=== PATIENT | male | born 1935 | race Caucasian/White ===

== ENCOUNTER 2016-07-23 09:49 | Inpatient (IN) | payer MEDICARE ==
[2016-07-23] MEDS ORDERED: NS 500 ML IV ONE (09:52)
--- NOTE | 2016-07-23 09:55 | EDPRACDOC ---
- General Information Chief Complaint: Altered Mental Status Stated Complaint: SYNCOPE Time Seen by Provider: 07/23/16 09:51 Home Medications: Home Medications Aspirin (Enteric Coated) [Ecotrin] 81 mg PO DAILY 07/23/16 Enalapril Maleate 20 mg PO BID 07/23/16 Fenofibrate,Micronized [Fenofibrate] 200 mg PO DAILY 07/23/16 Furosemide [Lasix] 40 - 80 mg PO DAILY 07/23/16 Levothyroxine [Synthroid, Levoxyl] 37.5 mcg PO DAILY 07/23/16 Metoprolol Tartrate 25 mg PO BID 07/23/16 Pravastatin [Pravachol] 80 mg PO DAILY 07/23/16 Tamsulosin HCl [Flomax] 0.4 mg PO DAILY 07/23/16 Warfarin Sodium [Coumadin] 0.5 mg PO WE 07/23/16 Warfarin Sodium [Coumadin] 1 mg PO SUMOTUTHFRSA 07/23/16 Allergies/Adverse Reactions: Allergies Allergy/AdvReac Type Severity Reaction Status Date / Time No Known Allergies Allergy Verified 07/23/16 10:03 - History of Present Illness Onset: TODAY Exact Onset of Symptoms: Unknown Date Symptoms Started: 07/23/16 HPI: PATIENT HAS A HX OF AFIB. FEELING WEAK AND DIZZY TODAY. STANDING AT THE STOVE HAD A SYNCOPAL EPISODE AND FELL BACKWARD. UNKNOWN LOC TIME. NO FEVER. NO CHEST PAIN. MILD HEADACHE AFTER FALL. ABRASIONS TO BOTH ELBOWS. CURRENTLY ON BLOOD THINNER. FAMILY STATES PATIENT HAS HAD DIZZINESS INTERMITTENTLY FOR DAYS. NOT WALKING WELL Symptoms began: Suddenly Duration: Unknown Symptoms Currently: Reports: Resolved Altered Quality: Reports: Decreased Alertness Altered Severity: Reports: Unresponsive Prehospital: Reports: Analysis Lead Associated signs and symptoms: Reports: Headache ED Past Medical History - History Reviewed Yes Nurses notes reviewed and agree except as marked Travel Outside of [place] in the Last 3 Months?: No - Social Medical History ETOH: None Substance Abuse: None Lives With: Family Lives In: Home EDM Review of Systems - Review of Systems ROS Negative Except as Marked: Yes All systems reviewed and were negative except as marked Constitutional: No Symptoms Reported. negative: Fever, Chills, Weakness, Fatigue, Loss of Appetite Eyes: No Symptoms Reported. negative: Redness, Blurred Vision, Double Vision, Discharge, Pain, Light Sensitive, Photophobia Ears: No Symptoms Reported. negative: Pain, Hearing Loss, Drainage, Ear Pulling Throat: No Symptoms Reported. negative: Pain, Swelling Nose: No Symptoms Reported. negative: Congestion, Bleeding, Discharge, Injection, Swelling, Deformity, Ecchymosis, Tender, Abrasion, Laceration Mouth: No Symptoms Reported. negative: Pain, Drooling Respiratory: No Symptoms Reported. negative: Cough, Brassy Cough, Barky Cough, Shortness of Breath, Wheezing, Hemoptysis Cardiovascular: Syncope. negative: Chest Pain, Cyanosis, Edema, Orthopnea, Palpitations, PND, Skin Mottling Gastrointestinal: No Symptoms Reported. negative: Pain, Constipation, Nausea, Vomiting, Diarrhea, Melena, Formula Intolerance Genitourinary: No Symptoms Reported. negative: Dysuria, Hematuria, Frequency, Discharge, Bleeding, Testicular Pain, Neurological: Dizziness. negative: Gait Difficulty, Headache, Numbness, Seizure , Speech Difficulty, Weakness Musculoskeletal: No Symptoms Reported. negative: Neck, Chestwall, Ribs, Back, Shoulder, Arm, Elbow, Forearm, Wrist, Hand, Pelvis, Hip, Femur, Knee, Leg, Ankle , Foot Integumentary: No Symptoms Reported. negative: Itching, Rash, Bruising, Wound Allergic/Immunologic: No Symptoms Reported. negative: Hives, Itching Hematologic: No Symptoms Reported. negative: Lymphadenopathy, Easy Bruising, Easy Bleeding Endocrine: No Symptoms Reported. negative: Weight Gain, Weight Loss Psychiatric: No Symptoms Reported. negative: Anxiety, Depression, Hallucinations, Insomnia, Suicidal - Physical Exam Constitutional: Alert (Awake), Distress (MILD) Oriented to: Time, Person, Place Last recorded Vital Signs: Oxygen Pulse Oxygen Saturation O2 Device Oxygen Flow Rate Fraction of Inspired Oxygen ( FIO2) - HEENT Head: Normal ( normocephalic) Eye Exam: Normal (PERRL, EOMI, Sclera white) Oropharynx: Normal (Pharynx:Moist without exudate,Gums-no swelling) Tympanic Membrane: Normal ENT EAC: Normal TMJ: Normal Nose: No Symptoms Reported (septum midline) Neck: Normal (FROM, trachea at midline) - Respiratory/Cardiovascular Respiratory: Normal - CTA (BBS clear to auscultation without adventitious sounds ) Cardiovascular: Normal (RRR without murmur, gallop or rub) - GI Auscultation: Normal (NABS) Palpation: Normal (Soft,No rebound or guarding, non distended) Tenderness: Non tender Sykes's Sign: Negative - Bladder: Normal - Musculoskeletal Back: Normal (Non-Tender) Extremities: Other (SKIN TEAR TO BOTH ELBOWS. FULL ROM GOOD DISTAL SENSATION AND PULSES) - Integumentary Skin: Warm, Dry Lymphatics: Normal (no adenopathy) - Neurologic Memory Impaired: Normal Motor Function: Normal (Normal tone, Pulses 2+ No cyanosis or edema, FROM) Cranial Nerve: Normal (CN II-X11 intact sensation, strength 5/5) Cerebellar: Normal Mood Description: Normal Thought: Coherent Perception: Normal - Results 07/23/16 10:26 07/23/16 10:26 - EKG EKG #1 EKG Time: 10:21 -: Yes EKG interpreted by me Rate: bpm: 90 [place]: Normal Rhythm: Afib Block: None Hypertrophy: None ST: Lat, Nonsp Comments: V4-V6 INVERTED TWAVES, LEAD 1 INVERTED T WAVES EKG #2 EKG Time: 10:26 -: Yes EKG interpreted by me Rate: bpm: 86 [place]: Normal Rhythm: ST Block: None Hypertrophy: None ST: Lat, Nonsp (FLIPPED T- WAVES LEAD V4-V6, LEAD 1) Decision Time to Discharge: 15:20 - Departure Yes I personally saw and evaluated the patient. Disposition: Admit IP To This Hospital Condition: Good Final Diagnosis: Lung nodule, multiple Syncope Qualifiers: Syncope type: unspecified Qualified Code(s): R55 - Syncope and collapse COPD (chronic obstructive pulmonary disease) Qualifiers: COPD type: emphysema Emphysema type: unspecified Qualified Code(s): J43.9 - Emphysema, unspecified Elbow contusion Qualifiers: Encounter type: initial encounter Laterality: unspecified laterality Qualified Code(s): S50.00XA - Contusion of unspecified elbow, initial encounter Instructions: Syncope (ED) Education/Counseling Given To: Patient Education/Counseling Given Regarding: Diagnosis, Treatment, Prognosis, Follow Up Referrals: Zeeshan Claros MD [Primary Care Provider] - One Week Ricky Ellington MD [Staff Physician] - One Week Decision to Admit Time: 15:27 Decision to admit date: 07/23/16 Decision to admit: from ED - Physician Consulted Hospitalist Time Called: 15:28 Provider Called: Berto Farah Time [employer] Returned Call: 15:28
[2016-07-23 10:36] LABS: AUTOMATED BASOPHIL 0.7 % (0-2); AUTOMATED EOSINOPHIL 0.3 % (0-5); AUTOMATED LYMPH 9.6 % (17-44); AUTOMATED MONOCYTE 8.7 % (3-10); AUTOMATED NEUTROPHIL 80.7 % (45-76); MPV 9.6 fL (7.4-10.4)
[2016-07-23 10:46] LABS: PT-INR 2.6
[2016-07-23 10:48] LABS: BLOOD UREA NITROGEN 41 MG/DL (9-20); CALCIUM 9.1 MG/DL (8.4-10.2); CALCULATED OSMOLALITY 281 MOs/Kg (270-290); CHLORIDE 101 mEq/L (98-107); GLUCOSE 106 MG/DL (70-99); SODIUM LEVEL 141 mEq/L (137-146); TOTAL PROTEIN 7.6 G/DL (6.3-8.2)
--- NOTE | 2016-07-23 11:19 | DIRPT ---
CLINICAL DATA: Patient status post fall. Patient hit the back of his head. No reported loss of consciousness. EXAM: CT HEAD WITHOUT CONTRAST CT CERVICAL SPINE WITHOUT CONTRAST TECHNIQUE: Multidetector CT imaging of the head and cervical spine was performed following the standard protocol without intravenous contrast. Multiplanar CT image reconstructions of the cervical spine were also generated. COMPARISON: Brain CT 12/05/2015. FINDINGS: CT HEAD FINDINGS Ventricles and sulci are appropriate for patient's age. No evidence for acute cortically based infarct, intracranial hemorrhage, mass lesion or mass-effect. Periventricular and subcortical white matter hypodensity compatible with chronic small vessel ischemic changes. Orbits are unremarkable. Paranasal sinuses are unremarkable. Mastoid air cells are well aerated. Calvarium is intact. CT CERVICAL SPINE FINDINGS Normal anatomic alignment. No evidence for acute fracture or dislocation. Preservation of the vertebral body and intervertebral disc space heights. Craniocervical junction is intact. Prevertebral soft tissues are unremarkable. Atherosclerotic calcification at the carotid bifurcations bilaterally. Extensive apical emphysematous change. 7 mm nodule within the right upper lobe (image 83; series 6). IMPRESSION: No acute intracranial process. No acute cervical spine fracture. 7 mm nodule right upper lobe. Given the patient's high-risk status, follow-up chest CT in 3 months is recommended. This recommendation follows the consensus statement: Guidelines for Management of Small Pulmonary Nodules Detected on CT Scans: A Statement from the Fleischner Society as published in Radiology 2005; 237:395-400. Electronically Signed By: Jim Mcgee M.D. On: 07/23/2016 11:16
--- NOTE | 2016-07-23 11:35 | DIRPT ---
CLINICAL DATA: 81-year-old male with with he history of atrial fibrillation. Weakness. Syncopal episode falling backward with injury to the left elbow. EXAM: LEFT ELBOW - COMPLETE 3+ VIEW COMPARISON: No priors. FINDINGS: Multiple views of the left elbow demonstrate no acute displaced fracture, subluxation, dislocation, or soft tissue abnormality. IMPRESSION: 1. No acute radiographic abnormality of the left elbow. Electronically Signed By: Harlan Bruno M.D. On: 07/23/2016 11:32
--- NOTE | 2016-07-23 11:36 | DIRPT ---
CLINICAL DATA: Fall EXAM: CHEST 1 VIEW COMPARISON: 08/19/2012 FINDINGS: Mild cardiomegaly. Bibasilar heterogeneous opacities have developed. No pneumothorax. No pleural effusion. Mild vascular congestion. IMPRESSION: Bibasilar heterogeneous opacities are worrisome for bronchopneumonia or edema. Followup PA and lateral chest X-ray is recommended in 3-4 weeks following trial of antibiotic therapy to ensure resolution and exclude underlying malignancy. Electronically Signed By: Trent Martinez M.D. On: 07/23/2016 11:33
--- NOTE | 2016-07-23 11:38 | DIRPT ---
CLINICAL DATA: 81-year-old male with acute right elbow pain following fall. Initial encounter. EXAM: RIGHT ELBOW - COMPLETE 3+ VIEW COMPARISON: None. FINDINGS: There is no evidence of fracture, dislocation, or joint effusion. There is no evidence of arthropathy or other focal bone abnormality. Soft tissues are unremarkable. IMPRESSION: Negative. Electronically Signed By: Santo Cantrell M.D. On: 07/23/2016 11:35
[2016-07-23] MEDS ORDERED: Pharmacy Review for Metformin - IV Contrast Given SCH (13:00)
--- NOTE | 2016-07-23 15:26 | DIRPT ---
CLINICAL DATA: Patient status post fall. Syncope. EXAM: CT ANGIOGRAPHY CHEST WITH CONTRAST TECHNIQUE: Multidetector CT imaging of the chest was performed using the standard protocol during bolus administration of intravenous contrast. Multiplanar CT image reconstructions and MIPs were obtained to evaluate the vascular anatomy. CONTRAST: 80 cc Isovue 370 COMPARISON: Chest radiograph earlier same day ; chest radiograph 08/19/2012. FINDINGS: Mediastinum/Nodes: Visualized thyroid is unremarkable. Normal heart size. No pericardial effusion. Aorta and main pulmonary artery normal in caliber. There is a 1.4 cm right hilar lymph node (image 51; series 3) and a 1.0 cm right paraesophageal lymph node (image 63; series 3). Adequate opacification of the main pulmonary artery. No evidence for pulmonary embolism. Lungs/Pleura: Central airways are patent. Centrilobular and paraseptal emphysematous change. There is a 5 mm left lower lobe pulmonary nodule (image 72; series 4). Additionally there is a 13 mm right middle lobe nodule (image 143; series 2). There is a 14 mm tubular density within the right upper lobe (image 54; series 602). Probable scarring within the left lung apex. No pleural effusion or pneumothorax. Upper abdomen: Incompletely visualized 2 cm cyst within the right hepatic lobe. Gallbladder unremarkable. Adrenal glands are normal. 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 Musculoskeletal: Thoracic spine degenerative changes. Aggressive or acute appearing osseous lesions. Review of the MIP images confirms the above findings. IMPRESSION: No evidence for pulmonary embolism. Bilateral pulmonary nodules, largest of which measures 13 mm within the right middle lobe. Right middle lobe nodule is nonspecific and may be secondary to an infectious or inflammatory process. Pulmonary malignancy is not excluded given the appearance. Given the patient's high risk status, recommend further evaluation with either repeat chest CT in 3 months or PET-CT for further evaluation. Tubular density within the right upper lobe is nonspecific and may be secondary to an infectious or inflammatory process. Recommend attention on above discussed follow-up imaging. Enlarged mediastinal and hilar lymph nodes as above. These are nonspecific and may be reactive in etiology. Malignancy not excluded. Recommend attention on above discussed follow-up imaging. 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 Recommend vascular surgery consultation. These results were called by telephone at the time of interpretation on 07/23/2016 at 3:[address] OZ COHEN DO, who verbally acknowledged these results. Electronically Signed By: Jim Mcgee M.D. On: 07/23/2016 15:23
[2016-07-23] MEDS ORDERED: METOCLOPRAMIDE 10 MG/2 ML VIAL IV PRN (15:44)
[2016-07-23] MEDS ORDERED: ONDANSETRON HCL 4 MG/2 ML VIAL IV PRN (15:44)
[2016-07-23] MEDS ORDERED: DEXTROSE 25 GM/50 ML PFS IV PRN (15:44)
[2016-07-23] MEDS ORDERED: GLUCOSE (ORAL GEL) 15 GM TUBE PO PRN (15:44)
[2016-07-23] MEDS ORDERED: GLUCAGON 1 MG VIAL SQ PRN (15:44)
[2016-07-23] MEDS ORDERED: SIMETHICONE 80 MG TAB PO PRN (15:44)
[2016-07-23] MEDS ORDERED: BENZONATATE 100 MG PERLES PO PRN (15:44)
[2016-07-23] MEDS ORDERED: NS 1,000 ML IV ONE (15:44)
[2016-07-23] MEDS ORDERED: ACETAMINOPHEN 650 MG SUPP PR PRN (15:44)
[2016-07-23] MEDS ORDERED: TEMAZEPAM 15 MG CAP PO PRN (15:44)
[2016-07-23] MEDS ORDERED: DOCUSATE-SENNA CONCENTRATE TAB PO PRN (15:44)
[2016-07-23] MEDS ORDERED: ACETAMINOPHEN 325 MG/TAB TABLET PO PRN (15:44)
[2016-07-23] MEDS ORDERED: IBUPROFEN 400 MG TAB PO PRN (15:44)
[2016-07-23] MEDS ORDERED: SODIUM CHLORIDE 0.9% 3 ML FLUSH FLUSH PRN (15:44)
--- NOTE | 2016-07-23 15:51 | HISTPHYS ---
- Chief Complaint syncope - History of Present Illness Mr. Taran Palacios is an 81 year old gentleman who lives at home with his . She is the main historian, he seems to not quite recall everything that happened. She states that he awakened through out the night numerous times, having to urinate, and complained of feeling dizzy. He also reported a tight feeling like a band across his forehead. She states he was up and down all night long urinating. Usually he only has to get up once or twice at night to use the bathroom. Then early this morning, he was standing in the kitchen near the stove and he fell backwards, striking his elbows and the back of his head. She couldn't get him up, but called her son. The son came over and then they called EMS to bring him to the ED for further evaluation. He did not have any fractures and the CT of his head was normal. But the patient, although alert and able to follow all commands, still seems not quite aware of everything that is going on. He was unable to give his own history, other than to say that he fell down. He seems mildly confused. His was able to tell me that he had a similar episode in November of 2015, and had a Carotid Doppler and CT of his head done then. But the patient did not recall it. His neurochecks are normal, but he may have had a minor concussion. He was mildly orthostatic also when checked by the nurse: his pulse went from 86 supine to 125 standing, although his blood pressure remained almost the same: 163/77 supine and 158/72 standing. We will admit him for further evaluation and management. - Medical History Cardiac History: Reports: Atrial Fibrillation, Hypertension, Congestive Heart Failure, Hypercholesterolemia Respiratory History: Reports: No Significant History GI/ History: Reports: No Significant History, BPH Musculoskeletal History: Reports: Osteoarthritis Systemic History: Reports: No Significant History, Hypothyroidism. Denies: Diabetes Neurological History: Reports: No Significant History Psychological History: Denies: Depression - Surgical History Reports: No Significant History - Medictions/Allergies Allergies No Known Allergies Allergy (Verified 07/23/16 10:03) Current Medication List: Reviewed Home Medications Aspirin (Enteric Coated) [Ecotrin] 81 mg PO DAILY 07/23/16 Enalapril Maleate 20 mg PO BID 07/23/16 Fenofibrate,Micronized [Fenofibrate] 200 mg PO DAILY 07/23/16 Furosemide [Lasix] 40 - 80 mg PO DAILY 07/23/16 Levothyroxine [Synthroid, Levoxyl] 37.5 mcg PO DAILY 07/23/16 Metoprolol Tartrate 25 mg PO BID 07/23/16 Pravastatin [Pravachol] 80 mg PO DAILY 07/23/16 Tamsulosin HCl [Flomax] 0.4 mg PO DAILY 07/23/16 Warfarin Sodium [Coumadin] 0.5 mg PO WE 07/23/16 Warfarin Sodium [Coumadin] 1 mg PO SUMOTUTHFRSA 07/23/16 - Family History Reports: Hypertension, Diabetes (brother), Cardiac Disorders - Social History Travel Outside of [place] in the Last 3 Months?: No Lives: with Spouse Smoking Status: Never smoker Social History: Denies: Alcohol Use - Review of Systems Yes Review of systems cannot be obtained due to the patient's medical condition (confusion/forgetfulness) - Physical Exam Vital Signs: Initial Vitals Temperature 98.6 F 07/23/16 10:00 Pulse Rate 102 07/23/16 10:00 Respiratory Rate 18 07/23/16 10:00 Blood Pressure 164/82 07/23/16 10:00 Pulse Oxygen Saturation 97 07/23/16 10:00 Constitutional: Confused, Distress Oriented to: Person, Place - HEENT Head: Abrasion (occipital scalp), Other (large nevus of left religious) Eye: Normal (PERRL: EOMI) Oropharynx: Normal, Membranes Dry. negative: Drooling, Exudate, Red Tympanic Membrane: Dull ENT EAC: Cerumen Nose: No Symptoms Reported. negative: Bleeding, Congestion, Discharge, Deformity Respiratory: Normal - CTA, Diminished Cardiovascular: Irregular (irregularly irregular rhythm and rate, no murmur) - GI Auscultation: Normal Palpation: Normal (soft, nontender, obese, no mass or fluid wave). negative: Enlarged liver, Enlarged spleen Tenderness: Non tender Rectal Exam: Deferred - Exam Deferred: Yes - Musculoskeletal Back: Normal, No Palpable Step-off. negative: CVA Tenderness Extremities: Normal, Pedal Pulse (normal), Radial Pulse (normal), Other (skin tears to both elbows). negative: Clubbing, Cyanosis, Edema Spine: non-tender, full range of motion, normal alignment, normal inspection - Integumentary Skin: Warm, Dry, Other (abrasions to B elbows, occipital scalp with small contusion) Lymphatics: Normal - Neurologic Memory Impaired: Short-term Motor Function: Normal Cranial Nerve: Normal Cerebellar: Normal Mood Description: Flat Thought: Coherent Perception: Normal - Focused CV Perfusion Exam Vital Signs: Last Vital Signs Temp 98.2 F 07/23/16 15:35 Pulse 79 07/23/16 15:35 Resp 20 07/23/16 15:35 BP 165/77 07/23/16 15:35 Pulse Ox 96 07/23/16 15:35 - Lab Results Laboratory Tests 07/23/16 07/23/16 07/23/16 10:26 10:26 10:26 WBC 5.5 Hgb 15.1 Hct 45.5 Plt Count 195 Neut % (Auto) 80.7 H Lymph % (Auto) 9.6 L [place] % (Auto) 8.7 PT 26.6 H INR 2.6 APTT 31.0 Sodium 141 Potassium 4.1 Chloride 101 Carbon Dioxide 28 Anion Gap 16 BUN 41 H Creatinine 1.40 H Estimated GFR (MDRD) 48 L Glucose 106 H POC Capillary Glucose Calculated Osmolality 281 Calcium 9.1 Total Bilirubin 0.7 AST 27 ALT 27 Alkaline Phosphatase 66 Troponin I < 0.01 Clr-G-Vunhhccjasa Pept 1190 Total Protein 7.6 Albumin 4.5 TSH 07/23/16 07/23/16 07/23/16 13:00 16:20 16:35 WBC Hgb Hct Plt Count Neut % (Auto) Lymph % (Auto) [place] % (Auto) PT INR APTT Sodium Potassium Chloride Carbon Dioxide Anion Gap BUN Creatinine Estimated GFR (MDRD) Glucose POC Capillary Glucose Calculated Osmolality Calcium Total Bilirubin AST ALT Alkaline Phosphatase Troponin I < 0.01 0.01 Vvp-S-Exrsyywranl Pept Total Protein Albumin TSH 3.00 07/23/16 17:16 WBC Hgb Hct Plt Count Neut % (Auto) Lymph % (Auto) [place] % (Auto) PT INR APTT Sodium Potassium Chloride Carbon Dioxide Anion Gap BUN Creatinine Estimated GFR (MDRD) Glucose POC Capillary Glucose 93 Calculated Osmolality Calcium Total Bilirubin AST ALT Alkaline Phosphatase Troponin I [id number] Pept Total Protein Albumin TSH - Diagnostic Findings EKG: atrial fib, 90 bpm, nonspec ST-changes in lateral leads (V4-6 flipped T- waves) CXR:IMPRESSION: Bibasilar heterogeneous opacities are worrisome for bronchopneumonia or edema. Followup PA and lateral chest X-ray is recommended in 3-4 weeks following trial of antibiotic therapy to ensure resolution and exclude underlying malignancy. Electronically Signed By: Trent Martinez M.D. On: 07/23/2016 11:33 CT Head/ C-spine: IMPRESSION: No acute intracranial process. No acute cervical spine fracture. 7 mm nodule right upper lobe. Given the patient's high-risk status, follow-up chest CT in 3 months is recommended. This recommendation follows the consensus statement: Guidelines for Management of Small Pulmonary Nodules Detected on CT Scans: A Statement from the Fleischner Society as published in Radiology 2005; 237:395-400. Electronically Signed By: Jim Mcgee M.D. On: 07/23/2016 11:16 CTA chest:IMPRESSION: No evidence for pulmonary embolism. Bilateral pulmonary nodules, largest of which measures 13 mm within the right middle lobe. Right middle lobe nodule is nonspecific and may be secondary to an infectious or inflammatory process. Pulmonary malignancy is not excluded given the appearance. Given the patient's high risk status, recommend further evaluation with either repeat chest CT in 3 months or PET-CT for further evaluation. Tubular density within the right upper lobe is nonspecific and may be secondary to an infectious or inflammatory process. Recommend attention on above discussed follow-up imaging. Enlarged mediastinal and hilar lymph nodes as above. These are nonspecific and may be reactive in etiology. Malignancy not excluded. Recommend attention on above discussed follow-up imaging. 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 Recommend vascular surgery consultation. These results were called by telephone at the time of interpretation on 07/23/2016 at 3:[address] OZ COHEN DO, who verbally acknowledged these results. Electronically Signed By: Jim Mcgee M.D. On: 07/23/2016 15:23 R. Elbow x-ray:IMPRESSION: Negative. Electronically Signed By: Santo Cantrell M.D. On: 07/23/2016 11:35 L Elbow X-ray: FINDINGS: Multiple views of the left elbow demonstrate no acute displaced fracture, subluxation, dislocation, or soft tissue abnormality. IMPRESSION: 1. No acute radiographic abnormality of the left elbow. Electronically Signed By: Harlan Bruno M.D. On: 07/23/2016 11:32 - Assessment (1) Syncope R55 - SYNCOPE AND COLLAPSE Acute Present on Admission: Yes Qualifiers: Syncope type: vasovagal syncope Qualified Code(s): R55 - Syncope and collapse Etiology uncertain but it may be dehydration due to his nocturnal diuresis. Not clear what caused this, but he may be responding to mild CHF. Will check echocardiogram. Also do MRI of head for better definition of intracranial lesion; rule out stroke/ small bleed. Patient has slightly altered mental status. (2) Acute bronchopneumonia J18.0 - BRONCHOPNEUMONIA, UNSPECIFIED ORGANISM Acute Present on Admission: Yes Obtain blood cultures and begin IV antibiotics. (3) COPD (chronic obstructive pulmonary disease) J44.9 - CHRONIC OBSTRUCTIVE PULMONARY DISEASE, UNSPECIFIED Acute Present on Admission: Yes Qualifiers: COPD type: emphysema Emphysema type: unspecified Qualified Code(s): J43.9 - Emphysema, unspecified No wheezing at present, but multiple pulmonary nodules on CXR and CTA. Evidence of pulmonary disease that may need further evaluation with bronchoscopy. Will treat for infection first, refer to Dr. Ellington for follow- up and outpatient bronchoscopy. (4) Nocturnal polyuria R35.1 - NOCTURIA Acute Present on Admission: Yes Etiology not clear, patient has no history of diabetes, glucose not elevated, no abnormalities of serum osmolality. Possibly due to CHF and diastolic response to infection with increased pulmonary pressures. (5) Lung nodule, multiple R91.8 - OTHER NONSPECIFIC ABNORMAL FINDING OF LUNG FIELD Acute Present on Admission: Yes Will need follow up as outlined by radiology and probable bronchoscopy. Refer to Dr. Ellington. (6) Elbow contusion S50.00XA - CONTUSION OF UNSPECIFIED ELBOW, INITIAL ENCOUNTER Acute Present on Admission: Yes Qualifiers: Encounter type: initial encounter Laterality: unspecified laterality Qualified Code(s): S50.00XA - Contusion of unspecified elbow, initial encounter Treat symptomatically with antibiotic ointment and topical dressing to wounds. Case Care Discussed with: Patient, Family, Nursing Staff Total Time: 65 min Critical Care: No Couseling Time (>50% in counseling/coordination): Yes Code: [id number]
[2016-07-23] MEDS ORDERED: ENOXAPARIN 40 MG/0.4 ML PFS SQ SCH (16:00)
[2016-07-23] MEDS ORDERED: Vaccine Screening Complete SCH (17:00)
[2016-07-23] MEDS: SODIUM CHLORIDE 0.9% 3 ML FLUSH FLUSH SCH (17:12)
[2016-07-23] MEDS: REGULAR INSULIN 100 UNITS/ML - 3 ML VIAL SQ SCH (19:25)
[2016-07-23] MEDS: NS 1,000 ML IV SCH ×2 (19:26→20:43)
[2016-07-23] MEDS: AZITHROMYCIN 500 MG in D5W 250 ML IV SCH (20:45)
[2016-07-23] MEDS: CEFTRIAXONE 1 GM in D5W 100 ML IV SCH (22:26)
[2016-07-24] MEDS: SODIUM CHLORIDE 0.9% 3 ML FLUSH FLUSH SCH ×2 (02:43→17:12)
[2016-07-24 05:45] LABS: BLOOD UREA NITROGEN 26 MG/DL (9-20); CALCIUM 8.9 MG/DL (8.4-10.2); CALCULATED OSMOLALITY 274 MOs/Kg (270-290); CHLORIDE 102 mEq/L (98-107); GLUCOSE 91 MG/DL (70-99); SODIUM LEVEL 140 mEq/L (137-146)
[2016-07-24] MEDS: REGULAR INSULIN 100 UNITS/ML - 3 ML VIAL SQ SCH ×2 (05:49→17:12)
[2016-07-24] MEDS: NS 1,000 ML IV SCH ×3 (08:19→20:28)
--- NOTE | 2016-07-24 09:51 | DIRPT ---
CLINICAL DATA: Persistent dizziness. Unsteady gait for 1 year. Polyuria. EXAM: MRI HEAD WITHOUT CONTRAST TECHNIQUE: Multiplanar, multiecho pulse sequences of the brain and surrounding structures were obtained without intravenous contrast. COMPARISON: Head CT from yesterday FINDINGS: Motion degraded study but overall diagnostic. Calvarium and upper cervical spine: No focal marrow signal abnormality. Orbits: Bilateral cataract resection. No pathologic finding. Sinuses and Mastoids: Clear. Brain: No acute infarct, hemorrhage, hydrocephalus, or mass lesion. No evidence of large vessel occlusion. No mass or signal abnormality at the sella, suprasellar cistern, or hypothalamus to explain the polyuria history. Generalized cerebral volume loss, age congruent. There is expected, mild small vessel ischemic change in the bilateral cerebral white matter. IMPRESSION: Unremarkable brain MRI for age. Electronically Signed By: Lane Thompson M.D. On: 07/24/2016 09:49
[2016-07-24] MEDS ORDERED: WARFARIN EDUCATION DOCUMENTATION ONE (10:00)
[2016-07-24] MEDS: PRAVASTATIN 80 MG TABLET PO SCH (10:28)
[2016-07-24] MEDS: TAMSULOSIN HCL 0.4 MG CAP PO SCH (10:28)
[2016-07-24] MEDS: METOPROLOL TARTRATE 25 MG TAB PO SCH ×2 (10:28→20:22)
[2016-07-24] MEDS: LEVOTHYROXINE 25 MCG (0.025 MG) TAB PO SCH (10:29)
--- NOTE | 2016-07-24 11:28 | CAPUECHO ---
INDICATION: SYNCOPE HEIGHT: 182.9 cm (6 ft 0.0 in) WEIGHT: 99.8 kg (220.0 lbs) BP: 134/74 BSA: 2.196849 m MEASUREMENTS 2D RVIDd: 3.3 cm IVSd: 1.1 cm LVIDd: 4.6 cm LVPWd: 1.1 cm LVIDs: 3.0 cm EF(Teich): 63.42 % LA Diam: 5.6 cm EF Biplane: 61.63 % LAESV MOD A4C: 107.2 ml LAESV MOD A2C: 94.4 ml LAESV Index (A-L): 50.86 ml/m DOPPLER MV E Noe: 1.34 m/s MV A Noe: 0.00 m/s MV PHT: 50.21 ms MVA By PHT: 4.38 cm LVOT Vmax: 0.76 m/s AV Vmax: 1.43 m/s TR Vmax: 3.81 m/s TR maxP mmHg RVSP: 68.06 mmHg FINDINGS ------- Procedure:2D images, m-mode, color and spectral Doppler were obtained and reviewed. ECG rhythm:Atrial fibrillation. Study quality:This was a technically difficult, but generally adequate study. Left Ventricle:There is borderline concentric left ventricular hypertrophy. Overall left ventricul ar systolic function is normal with, an EF approx 55%, ? mild inferior hypokinesis. Right Ventricle:The right ventricle is normal in size and function. Left Atrium:Left atrium is moderately dilated by volume. Right Atrium:The right atrium is moderately enlarged. Aortic Valve:The aortic valve is trileaflet with m ild aortic valve sclerosis. Good mobility. There is no evidence of aortic regurgitation. Mitral Valve:. Mild mitral annular calcification present with thin pliable leaflets, Mild mitr al regurgitation is present. Tricuspid Valve:The tricuspid valve appears structurally normal. 2+ Moderate tricuspid regurgita tion present. The right ventricular systolic pressure, as measured by Doppler, is 68mmhg. Pulmonic Valve:The pulmonic valve is normal. Trace/mild (physiologic) pulmonic regurgitation. Aorta:The aortic root, ascending aorta and aortic arch appear normal. IVC:Normal inferior vena cava with normal inspiratory collapse. Pericardium:There is no pericardial effusion. CONCLUSIONS 1. grossly normal left ventricular size/function, ? mild inferior hypokinesis, normal ejection fract ion 2. mitral annular calcium with mild regurgitation, mod/marked left atrial dilatation in afib 3. normal RV size/function, moderate TR, dilated RA, moderate elevation of pulm artery pressure suggested 4. aortic sclerosis No intracardiac obstruction identified. Electronically Signed By: Pavan Moses MD-- Electronically Signed On: 11:28:03
--- NOTE | 2016-07-24 13:50 | GENMEDPROG ---
Chief Complaint: SYNCOPE, DIZZINESS, BRONCHOPNEUMONIA, - Physical Examination Vital Signs and I&O: Last Vital Signs Temp 97.8 F 07/24/16 12:01 Pulse 88 07/24/16 12:01 Resp 20 07/24/16 12:01 BP 140/69 07/24/16 12:01 Pulse Ox 94 07/24/16 12:01 Oxygen Pulse Oxygen Saturation 94 O2 Device Room Air Oxygen Flow Rate Fraction of Inspired Oxygen ( FIO2) Intake & Output 07/21/16 07/22/16 07/23/16 07/24/16 23:59 23:59 23:59 23:59 Intake Total 1312 1925 Output Total 1000 300 Balance 312 1625 Patient's weight 95.481 kg 93.44 kg Lymphatics: Normal Respiratory: Normal - CTA, Diminished Lab/DI/Studies Reviewed: MRI: Brain: No acute infarct, hemorrhage, hydrocephalus, or mass lesion. No evidence of large vessel occlusion. No mass or signal abnormality at the sella, suprasellar cistern, or hypothalamus to explain the polyuria history. Generalized cerebral volume loss, age congruent. There is expected, mild small vessel ischemic change in the bilateral cerebral white matter. IMPRESSION: Unremarkable brain MRI for age. Electronically Signed By: Lane Thompson M.D. On: 07/24/2016 09:49 ECHO: CONCLUSIONS 1. grossly normal left ventricular size/function, ? mild inferior hypokinesis, normal ejection fraction 2. mitral annular calcium with mild regurgitation, mod/marked left atrial dilatation in afib 3. normal RV size/function, moderate TR, dilated RA, moderate elevation of pulm artery pressure suggested 4. aortic sclerosis No intracardiac obstruction identified. Electronically Signed By: Pavan Moses MD-- Electronically Signed On: 11:28:03 Copy to: Zeeshan Claros MD~ 07/24/16 1128 - Assessment (1) Syncope Acute R55 - SYNCOPE AND COLLAPSE Qualifiers: Syncope type: vasovagal syncope Qualified Code(s): R55 - Syncope and collapse Comment/Plan: Etiology uncertain but it may be dehydration due to his nocturnal diuresis. Not clear what caused this, but he may be responding to mild CHF. Will check echocardiogram. Also MRI of head showed no significant intracranial lesion; ruled out stroke/small bleed. Patient has some small vessel ischemic disease. (2) Acute bronchopneumonia Acute J18.0 - BRONCHOPNEUMONIA, UNSPECIFIED ORGANISM Comment/Plan: Continue Rocephin and Zithromax. (3) COPD (chronic obstructive pulmonary disease) Acute J44.9 - CHRONIC OBSTRUCTIVE PULMONARY DISEASE, UNSPECIFIED Qualifiers: COPD type: emphysema Emphysema type: unspecified Qualified Code(s): J43.9 - Emphysema, unspecified Comment/Plan: No wheezing at present, but multiple pulmonary nodules on CXR and CTA. Evidence of pulmonary disease that may need further evaluation with bronchoscopy. Will treat for infection first, refer to Dr. Ellington for follow- up and outpatient bronchoscopy. (4) Nocturnal polyuria Acute R35.1 - NOCTURIA Comment/Plan: Etiology not clear, patient has no history of diabetes, glucose not elevated, no abnormalities of serum osmolality. Probably due to CHF and diastolic response to infection with increased pulmonary pressures. Patient admits to eating a lot of salt, more some days than others. (5) Lung nodule, multiple Acute R91.8 - OTHER NONSPECIFIC ABNORMAL FINDING OF LUNG FIELD Comment/Plan : Will need follow up as outlined by radiology and probable bronchoscopy. Refer to Dr. Ellington. (6) Elbow contusion Acute S50.00XA - CONTUSION OF UNSPECIFIED ELBOW, INITIAL ENCOUNTER Qualifiers: Encounter type: initial encounter Laterality: unspecified laterality Qualified Code(s): S50.00XA - Contusion of unspecified elbow, initial encounter Comment/Plan: Treat symptomatically with antibiotic ointment and topical dressing to wounds. - Plan Probable discharge in AM
[2016-07-24] MEDS: This patient is receiving warfarin therapy SCH (17:12)
[2016-07-24] MEDS ORDERED: WARFARIN 1 MG TAB PO SCH (18:00)
[2016-07-24] MEDS: AZITHROMYCIN 500 MG in D5W 250 ML IV SCH (20:22)
[2016-07-24] MEDS: CEFTRIAXONE 1 GM in D5W 100 ML IV SCH (21:29)
[2016-07-24] MEDS ORDERED: FUROSEMIDE 20 MG/2 ML VIAL IV ONE (22:45)
[2016-07-25] MEDS: SODIUM CHLORIDE 0.9% 3 ML FLUSH FLUSH SCH ×2 (03:44→18:06)
[2016-07-25 04:09] VITALS: BMI 27.8
[2016-07-25] MEDS: REGULAR INSULIN 100 UNITS/ML - 3 ML VIAL SQ SCH ×2 (06:17→18:06)
[2016-07-25 06:57] LABS: PT-INR 3.1
[2016-07-25] MEDS: PRAVASTATIN 80 MG TABLET PO SCH (07:42)
[2016-07-25] MEDS: TAMSULOSIN HCL 0.4 MG CAP PO SCH (07:42)
[2016-07-25] MEDS: METOPROLOL TARTRATE 25 MG TAB PO SCH ×2 (07:42→20:25)
[2016-07-25] MEDS: FENOFIBRATE 48 MG TAB PO SCH (07:42)
[2016-07-25] MEDS: LEVOTHYROXINE 25 MCG (0.025 MG) TAB PO SCH (07:42)
[2016-07-25] MEDS: FENOFIBRATE 145 MG TAB PO SCH (07:42)
[2016-07-25] MEDS ORDERED: Non-Formulary Medication ITEM (Fenofibrate,Micronized [Fenofibrate] 200 MG) PO SCH (09:00)
--- NOTE | 2016-07-25 09:27 | PCM.DCS92 ---
- Final/Secondary Discharge Diagnosis (1) Syncope Acute R55 - SYNCOPE AND COLLAPSE Present on Admission: Yes vasovagal syncope R55 - Syncope and collapse Comment: Etiology uncertain but it may be dehydration due to his nocturnal diuresis. Not clear what caused this, but he may be responding to mild CHF. Echocardiogram- shows mild inferior hypokinesis, but normal EF, probably old inferior PA and diastolic dysfunction from atrial fib. Also suggestive of pulmonary HTN. MRI of head showed no significant intracranial lesion; ruled out stroke/small bleed. Patient has some small vessel ischemic disease. Plan/Goal/Comment: ECHO: CONCLUSIONS 1. grossly normal left ventricular size/function, ? mild inferior hypokinesis, normal ejection fraction 2. mitral annular calcium with mild regurgitation, mod/marked left atrial dilatation in afib 3. normal RV size/function, moderate TR, dilated RA, moderate elevation of pulm artery pressure suggested 4. aortic sclerosis No intracardiac obstruction identified. Electronically Signed By: Pavan Moses MD-- Electronically Signed On: 11:28:03 Copy to: Zeeshan Claros MD~ 07/24/16 7470 (2) Acute bronchopneumonia Acute J18.0 - BRONCHOPNEUMONIA, UNSPECIFIED ORGANISM Present on Admission: Yes Comment: Has been on IV Rocephin and Zithromax. Will discharge home on Ceftin PO. Blood cultures negative. (3) COPD (chronic obstructive pulmonary disease) Acute J44.9 - CHRONIC OBSTRUCTIVE PULMONARY DISEASE, UNSPECIFIED Present on Admission: Yes emphysema unspecified J43.9 - Emphysema, unspecified Comment: No wheezing at present, but multiple pulmonary nodules on CXR and CTA. Evidence of pulmonary disease that may need further evaluation with bronchoscopy. Will treat for infection first, refer to Dr. Ellington for follow- up and outpatient bronchoscopy. 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 (5) Nocturnal polyuria Acute R35.1 - NOCTURIA Present on Admission: Yes Comment: Etiology not clear, patient has no history of diabetes, glucose not elevated, no abnormalities of serum osmolality. Probably due to CHF and diastolic response to infection with increased pulmonary pressures. Patient admits to eating a lot of salt, more some days than others. (6) Lung nodule, multiple Acute R91.8 - OTHER NONSPECIFIC ABNORMAL FINDING OF LUNG FIELD Present on Admission: Yes Comment: Will need follow up as outlined by radiology and probable bronchoscopy. Refer to Dr. Ellington. Plan/Goal/Comment: CTA CHEST IMPRESSION: No evidence for pulmonary embolism. Bilateral pulmonary nodules, largest of which measures 13 mm within the right middle lobe. Right middle lobe nodule is nonspecific and may be secondary to an infectious or inflammatory process. Pulmonary malignancy is not excluded given the appearance. Given the patient's high risk status, recommend further evaluation with either repeat chest CT in 3 months or PET-CT for further evaluation. Tubular density within the right upper lobe is nonspecific and may be secondary to an infectious or inflammatory process. Recommend attention on above discussed follow-up imaging. Enlarged mediastinal and hilar lymph nodes as above. These are nonspecific and may be reactive in etiology. Malignancy not excluded. Recommend attention on above discussed follow-up imaging. 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 Recommend vascular surgery consultation. These results were called by telephone at the time of interpretation on 07/23/2016 at 3:[address] OZ COHEN DO, who verbally acknowledged these results. Electronically Signed By: Jim Mcgee M.D. On: 07/23/2016 15:23 (7) Elbow contusion Acute S50.00XA - CONTUSION OF UNSPECIFIED ELBOW, INITIAL ENCOUNTER Present on Admission: Yes initial encounter unspecified laterality S50.00XA - Contusion of unspecified elbow, initial encounter Comment: Treat symptomatically with antibiotic ointment and topical dressing to wounds. Discharge Disposition: Home Discharge Condition: Improved Cognitive Discharge Status: Cognitive deficits prevent decision making for safety. Fuctional Discharge Status: Independent, Inability to drive due to severe medical illness Physician Follow up/Referrals: Ricky Ellington MD [Staff Physician] - 08/06/16 10:00 am Zeeshan Claros MD [Primary Care Provider] - 08/01/16 9:30 am Narinder Schwartz MD [Staff Physician] - Keep Scheduled Appt New Prescriptions: Cefuroxime Axetil [Ceftin] 500 mg PO BID #14 tablet Enalapril Maleate 20 mg PO DAILY #1 tablet Discharge Home Medication List Aspirin (Enteric Coated) [Halfprin] 81 mg PO QHS 07/23/16 [History Confirmed 09/07 Last Taken 07/22/16] Fenofibrate,Micronized [Fenofibrate] 200 mg PO DAILY 07/23/16 [History Confirmed 07/23/16 Last Taken 07/22/16] Furosemide [Lasix] 40 - 80 mg PO DAILY 07/23/16 [History Confirmed 07/23/16 Last Taken 07/22/16] Levothyroxine [Synthroid, Levoxyl] 37.5 mcg PO DAILY 07/23/16 [History Confirmed 07/23/16 Last Taken 07/22/16] Metoprolol Tartrate 25 mg PO BID 07/23/16 [History Confirmed 07/23/16 Last Taken 07/22/16] Pravastatin [Pravachol] 80 mg PO DAILY 07/23/16 [History Confirmed 07/23/16 Last Taken 07/22/16] Tamsulosin HCl [Flomax] 0.4 mg PO DAILY 07/23/16 [History Confirmed 07/23/16 Last Taken 07/22/16] Warfarin Sodium [Coumadin] 0.5 mg PO WE 07/23/16 [History Confirmed 07/23/16 Last Taken 07/18/16] Warfarin Sodium [Coumadin] 1 mg PO SUMOTUTHFRSA 07/23/16 [History Confirmed 09/07 Last Taken 07/22/16] Cefuroxime Axetil [Ceftin] 500 mg PO BID #14 tablet 07/25/16 [Rx Last Taken Unknown] Enalapril Maleate 20 mg PO DAILY #1 tablet 07/25/16 [Rx Last Taken Unknown] O2 Device: Nasal Cannula Oxygen Flow Rate: 2 Oxygen to be used after Discharge: Continuous Diet at Discharge: Cardiac, Heart Healthy, Low Salt, Diabetic Activity: As Tolerated, No Driving Call Office For: Worsening Symptoms Discontinue use of:: Alcohol, All Types of Tobacco - DC Summary Notes Home Health Need / Penitentiary Services:: Due to the presence of Pulmonary Changes and/or risk of deterioration a skilled Assessment and observation of pulmonary status is required for this patient. This assessment could include but not limited to teaching, training of disease process and symptom management (diet, infection control, safety) and recognizing changes/decline in status. If appropriate to include education on oxygen use - safety, storage, reordering and need for a fire plan. Pulse Oximetry PRN for S/S respiratory distress. Hospital Course Note:: Discharge summary on patient named TARAN PALACIOS admitted to [facility] on 07/23/16 by Danii Cheney MD. Date of discharge is [07/26/16]. Mr. Taran Palacios is an 81 year old gentleman who lives at home with his . She is the main historian, he seems to not quite recall everything that happened. She states that he awakened through out the night numerous times, having to urinate, and complained of feeling dizzy. He also reported a tight feeling like a band across his forehead. She states he was up and down all night long urinating. Usually he only has to get up once or twice at night to use the bathroom. Then early this morning, he was standing in the kitchen near the stove and he fell backwards, striking his elbows and the back of his head. She couldn't get him up, but called her son. The son came over and then they called EMS to bring him to the ED for further evaluation. He did not have any fractures and the CT of his head was normal. But the patient, although alert and able to follow all commands, still seems not quite aware of everything that is going on. He was unable to give his own history, other than to say that he fell down. He seems mildly confused. His was able to tell me that he had a similar episode in November of 2015, and had a Carotid Doppler and CT of his head done then. But the patient did not recall it. His neurochecks are normal, but he may have had a minor concussion. He was mildly orthostatic also when checked by the nurse: his pulse went from 86 supine to 125 standing, although his blood pressure remained almost the same: 163/77 supine and 158/72 standing. We will admit him for further evaluation and management. THE PATIENT WAS ADMITTED FOR AN EVALUATION OF SYNCOPE. He was found to be hypoxic, and his CT of the chest revealed some areas concerning for pneumonia. He also has a history of diastolic congestive heart failure and atrial fibrillation. For most of his hospitalization, his heart rate was fairly well controlled, but he was noted to be orthostatic as noted above. His lisinopril was reduced to once a day, but his other medications were continued at his usual home doses. His blood pressures remained in good control, and he was less symptomatic, until the morning of July 25, when he developed first bradycardia, with pulse as slow as 48 with occasional 2 second pauses, and about two hours later tachycardia with a heart rate of 150. 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 His discharge was delayed and cardiology consult was arranged. Potassium and magnesium levels were normal at this time. Although non of the heart rates were severe or prolonged, it seemed they may have been enough to provoke his symptoms. He was also hypoxic enough to qualify for home oxygen. His O2 sat on room air was 86% at rest, with ambulation it was 88%. Therefore he will be discharged with home oxygen 2 L continuously per NC. Arrangements have been made for him to have further evaluation by cardiology for possible pacemaker placement. He will follow-up with Dr. Claros in 1 week, and Dr. Schwartz as scheduled (3-4 weeks). Due to the multiple abnormalities/pulmonary nodules on his CTA of the chest, he will also be referred to Dr. Ellington, for possible bronchoscopy in 2 weeks. Total Time: 45 min Code: 76720 (>30min.) - Physical Exam Vital Signs: Last Vital Signs Temp 97.9 F 07/25/16 07:45 Pulse 118 07/25/16 07:45 Resp 20 07/25/16 07:45 BP 132/69 07/25/16 07:45 Pulse Ox 92 07/25/16 07:45 Oxygen Pulse Oxygen Saturation 92 O2 Device Nasal Cannula Oxygen Flow Rate 1 Fraction of Inspired Oxygen ( FIO2) Constitutional: No apparent distress, Alert, Confused Oriented to: Person, Place - HEENT Head: Abrasion (occipital scalp), Other (large nevus of left scientologist) Eye: Normal (PERRL: EOMI) Oropharynx: Normal. negative: Drooling, Exudate, Red Tympanic Membrane: Dull ENT EAC: Cerumen Nose: No Symptoms Reported. negative: Bleeding, Congestion, Discharge, Deformity - Respiratory/Cardiovascular Respiratory: Normal - CTA, Diminished Cardiovascular: Normal - GI Auscultation: Normal Palpation: Normal (soft, nontender, obese, no mass or fluid wave). negative: Enlarged liver, Enlarged spleen Tenderness: Non tender Rectal Exam: Deferred - Musculoskeletal Back: Normal, No Palpable Step-off. negative: CVA Tenderness Extremities: Normal, Pedal Pulse (normal), Radial Pulse (normal), Other (skin tears to both elbows). negative: Clubbing, Cyanosis, Edema - Integumentary Skin: Warm, Dry Lymphatics: Normal - Neurologic Memory Impaired: Short-term Motor Function: Normal Cranial Nerve: Normal Cerebellar: Normal Mood Description: Normal, Flat Thought: Coherent Perception: Normal
[2016-07-25 11:05] LABS: MPV 10.4 fL (7.4-10.4)
[2016-07-25 11:32] LABS: AUTOMATED EOSINOPHIL 1.4 % (0-5); AUTOMATED LYMPH 11.3 % (17-44); AUTOMATED MONOCYTE 13.7 % (3-10); AUTOMATED NEUTROPHIL 72.6 % (45-76); MPV 9.5 fL (7.4-10.4)
[2016-07-25 11:58] LABS: BLOOD UREA NITROGEN 20 MG/DL (9-20); CALCIUM 9.3 MG/DL (8.4-10.2); CALCULATED OSMOLALITY 269 MOs/Kg (270-290); CHLORIDE 102 mEq/L (98-107); GLUCOSE 94 MG/DL (70-99); SODIUM LEVEL 138 mEq/L (137-146)
--- NOTE | 2016-07-25 12:04 | DIRPT ---
CLINICAL DATA: Confusion. Abnormal breath sounds. EXAM: PORTABLE CHEST 1 VIEW COMPARISON: Chest x-ray and CT scan dated 07/23/2016 FINDINGS: The heart size and pulmonary vascularity are normal. The lungs are clear. No acute osseous abnormality. IMPRESSION: No acute abnormality. Electronically Signed By: Avi Whitlock M.D. On: 07/25/2016 12:02
[2016-07-25 13:37] LABS: BLOOD UREA NITROGEN 20 MG/DL (9-20); CALCIUM 9.2 MG/DL (8.4-10.2); CALCULATED OSMOLALITY 271 MOs/Kg (270-290); CHLORIDE 102 mEq/L (98-107); GLUCOSE 105 MG/DL (70-99); SODIUM LEVEL 139 mEq/L (137-146)
--- NOTE | 2016-07-25 15:06 | PCM.CARDCO ---
Consultation Date: 07/25/16 Requesting Physician: syncope, afib Consulting Doctor: Pavan Moses Travel Outside of [place] in the Last 3 Months?: No Consultation Note: History of Present Illness: The pt is an 81 yo WM with long hx of atrial fib on full anticoagulation and rate control with metoprolol 25 mg bid, followed by Dr. Claros. He has not required Cardiology f/u in memory. He was admitted yesterday after a restless night where acc to his , he was up to bathroom much more frequently than usual. He began experiencing some lightheadedness when he would sit up on edge of bed. In AM, he was fixing some breakfast when he became very lightheaded, and briefly lost consciousness, falling backward to floor. He regained consciousness spontaneously, son was notified and called warp drawer. He has had no chest pain or chest discomfort at any point, no headache, arm or leg weakness, no unusual SOB, orthopnea, PND, or palpitations. relates that he had one other brief episode of LOC a couple months ago, when he slumped forward over a table but sustained no injury. states he likes to stay active, enjoys working the yard and projects around the house Past Medical History: afib, dyslipidemia, HBP; no CAD/TN/CHF/CVA Allergies No Known Allergies Allergy (Verified 07/23/16 10:03) Home Medications Aspirin (Enteric Coated) [Halfprin] 81 mg PO QHS 07/23/16 Fenofibrate,Micronized [Fenofibrate] 200 mg PO DAILY 07/23/16 Furosemide [Lasix] 40 - 80 mg PO DAILY 07/23/16 Levothyroxine [Synthroid, Levoxyl] 37.5 mcg PO DAILY 07/23/16 Metoprolol Tartrate 25 mg PO BID 07/23/16 Pravastatin [Pravachol] 80 mg PO DAILY 07/23/16 Tamsulosin HCl [Flomax] 0.4 mg PO DAILY 07/23/16 Warfarin Sodium [Coumadin] 0.5 mg PO WE 07/23/16 Warfarin Sodium [Coumadin] 1 mg PO SUMOTUTHFRSA 07/23/16 Cefuroxime Axetil [Ceftin] 500 mg PO BID #14 tablet 07/25/16 Enalapril Maleate 20 mg PO DAILY #1 tablet 07/25/16 Family History: neg for premature CAD. One son A&W Social History: Traveled outside the [place] in the last 3 months? No Never smoker Lives with , worked into his 70s, still enjoys projects/yard work Review of Systems: 10 system otherwise negative. No TIA/CVA sx, melena, Physical Examination: Temperature: 97.9 F (07/25/16 11:48)HR: 88 (07/25/16 12:30)RR: 20 (07/25/16 11: 48)BP: 164/74 (07/25/16 11:48) SAT:92 (07/25/16 11:48) [] Physical Exam GEN: Overweight, elderly in NAD. Apical HR normal BP 148/90 supine, 130/80 standing VS: as above HEENT: no JVD. Carotids normal, no bruit CHEST: clear COR: irreg irreg, sharif s1, normal s2, no s3. Gr 1/6 RENARD art R2ICS ABD: obese/nontender, no mass EXTREM: nl contour, no edema, rad, PT 2+ bialt SKIN: warm, dry, few ecchymoses, side, elbows NEURO: alert, normal speech, no focal deficit or tremor. Unsteady on feet , difficult getting out of bed. LAB/DI: [] Laboratory Tests 07/23/16 07/25/16 10:26 11:27 WBC 5.5 Hgb 15.1 Hct 45.5 Plt Count 195 Sodium 138 Potassium 4.4 Chloride 102 Carbon Dioxide 27 BUN 20 Creatinine 1.00 Estimated GFR (MDRD) > 60 Magnesium 2.20 [id number] Pept 1940 H EKG: afib, controlled rate, diffuse non-specific ST-T changes, no evolution tele: afib, rates generally wnl. Occas short spikes to HR 150. Rare short periods of bradycardia, lowest HR 49/min Longest pause 2.1 seconds Echo: normal LVEF, ? mild inferior hypo (probably normal), mild MR, LAE, normal RV function with moderate elevation of pulm artery pressures CT chest: neg for PE/dissection/ effusions; has pulm nodules MRI of head: normal for age. IMPRESSION: rare isolated syncopal episodes, ? etiol - possibly related to transient bradycardia or excessive tachycardia in afib Question would be whether future episodes can be prevented by ventricular pacing, perhaps with more aggressive rate control with medication. (Reluctant to change metoprolol dosing alone, as rate control appears generally reasonable). - ?related to deconditioning - ? orthostasis - Recommendations REC: PT eval for ? stability reduce furosemide dose outpt event monitor : [facility] Jul 31 2:15 pm Cardiology f/u : Dr. Schwartz Aug 21 2:30 pm
[2016-07-25] MEDS: This patient is receiving warfarin therapy SCH (17:34)
[2016-07-25] MEDS ORDERED: WARFARIN 1 MG TAB PO SCH (18:00)
[2016-07-25] MEDS ORDERED: AZITHROMYCIN 250 MG TAB PO SCH (21:00)
[2016-07-25] MEDS: CEFTRIAXONE 1 GM in D5W 100 ML IV SCH (21:46)
[2016-07-26 04:35] LABS: MPV 10.1 fL (7.4-10.4)
[2016-07-26 04:50] LABS: PT-INR 3.3
[2016-07-26] MEDS: REGULAR INSULIN 100 UNITS/ML - 3 ML VIAL SQ SCH (05:20)
[2016-07-26] MEDS: SODIUM CHLORIDE 0.9% 3 ML FLUSH FLUSH SCH (06:26)
[2016-07-26] MEDS: LEVOTHYROXINE 25 MCG (0.025 MG) TAB PO SCH (07:50)
[2016-07-26] MEDS: PRAVASTATIN 80 MG TABLET PO SCH (07:50)
[2016-07-26] MEDS: METOPROLOL TARTRATE 25 MG TAB PO SCH (07:51)
[2016-07-26] MEDS: FENOFIBRATE 48 MG TAB PO SCH (07:51)
[2016-07-26] MEDS: FENOFIBRATE 145 MG TAB PO SCH (07:51)
[2016-07-26] MEDS: TAMSULOSIN HCL 0.4 MG CAP PO SCH (07:51)
[2016-07-26 08:01] VITALS: TEMP 96.8
[2016-07-26 09:25] VITALS: BP 142/54
--- NOTE | 2016-07-26 11:45 | GENMEDPROG ---
Chief Complaint: tachy-anastasia syndrome, diastolic CHF, atrial fib, syncope, COPD exac, pneumonia, Subjective Note: patient held over due to abnormal heart rhythms, need for further evaluation by cardiology Notes Reviewed: Yes Events from last night noted and discussed with Clinical Staff Current Medication List: Reviewed Currently: Reports: GARVIN, SOB, Ambulating. Denies: Tobacco Use/Hx (former, none now), Fever/Chills, Chest Pain DVT Prophylaxis: Yes - Physical Examination Vital Signs and I&O: Last Vital Signs Temp 96.8 F L 07/26/16 07:58 Pulse 82 07/26/16 10:19 Resp 15 07/26/16 07:58 BP 142/54 L 07/26/16 09:24 Pulse Ox 88 L 07/26/16 10:20 Oxygen Pulse Oxygen Saturation 88 O2 Device Nasal Cannula Oxygen Flow Rate 2 Fraction of Inspired Oxygen ( FIO2) Intake & Output 07/23/16 07/24/16 07/25/16 07/26/16 23:59 23:59 23:59 23:59 Intake Total 1312 3892 1699 240 Output Total 1000 1450 1500 1 Balance 312 2442 199 239 Patient's weight 95.481 kg 93.44 kg 93.032 kg 93.44 kg General: Alert, Oriented x3, Cooperative, Mild distress, Weakness HEENT: Normal, PERRLA, EOMI, Anicteric Sclera, Mucous membr. moist/pink, Other ( lips are cyanotic) Neck: Non-tender, Full range of motion, Normal Trachea alignment, Normal inspection, No Masses palpable Lymphatics: Normal Respiratory: Normal - CTA, Diminished Cardiovascular: Normal S1, Normal S2, Irregular GI: Normal bowel sounds, Soft, Non tender, No masses, Obese Extremities/Musculoskeletal: Normal pulses, DJD, FROM, Motor 5/5 throughout. negative: Edema Skin: No rashes, Other (lacerations/abrasions are bandaged and healing well) Neurological: Normal speech, Strength at 5/5 X4 ext, Normal tone, Cranial nerves 3-12 NL, Gait Unsteady Psych/Mental Status: Normal Affect, Cooperative Lab/DI/Studies Reviewed: Laboratory Tests 07/25/16 07/25/16 07/25/16 11:27 16:22 20:56 WBC Hgb Plt Count PT INR Sodium 138 Potassium 4.4 Chloride 102 Carbon Dioxide 27 Anion Gap 13 BUN 20 Creatinine 1.00 Estimated GFR (MDRD) > 60 Glucose 94 POC Capillary Glucose 124 H 118 H Calculated Osmolality 269 L Calcium 9.3 Magnesium 2.20 Itm-H-[id number] Pept 1940 H 07/26/16 07/26/16 07/26/16 04:10 04:10 04:46 WBC 6.7 Hgb 14.2 Plt Count 201 PT 34.6 H INR 3.3 Sodium Potassium Chloride Carbon Dioxide Anion Gap BUN Creatinine Estimated GFR (MDRD) Glucose POC Capillary Glucose 89 Calculated Osmolality Calcium Magnesium [id number]-G-Tqwxjtthxyd Pept - Assessment (1) Syncope Acute R55 - SYNCOPE AND COLLAPSE Qualifiers: Syncope type: vasovagal syncope Qualified Code(s): R55 - Syncope and collapse Comment/Plan: Etiology uncertain but 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 Telemetry captured some 2 ssecond pauses yesterday and heart rates down to 48 and up to 150-160, atrial fibrillation. Echocardiogram- shows mild inferior hypokinesis, but normal EF, probably old inferior LA and diastolic dysfunction from atrial fib. Also suggestive of pulmonary HTN. MRI of head showed no significant intracranial lesion; ruled out stroke/small bleed. Patient has some small vessel ischemic disease. (2) Acute bronchopneumonia Acute J18.0 - BRONCHOPNEUMONIA, UNSPECIFIED ORGANISM Comment/Plan: Has been on IV Rocephin and Zithromax. Will discharge home on Ceftin PO. Blood cultures negative. (3) COPD (chronic obstructive pulmonary disease) Acute J44.9 - CHRONIC OBSTRUCTIVE PULMONARY DISEASE, UNSPECIFIED Qualifiers: COPD type: emphysema Emphysema type: unspecified Qualified Code(s): J43.9 - Emphysema, unspecified Comment/Plan: No wheezing at present, but multiple pulmonary nodules on CXR and CTA. Evidence of pulmonary disease that may need further evaluation with bronchoscopy. Will treat for infection first, refer to Dr. Ellington for follow- up and outpatient bronchoscopy. 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 Echocardiogram- shows mild inferior hypokinesis, but normal EF, probably old inferior LA and diastolic dysfunction from atrial fib.. Cardiology consulted. (5) Nocturnal polyuria Acute R35.1 - NOCTURIA Comment/Plan: Etiology not clear, patient has no history of diabetes, glucose not elevated, no abnormalities of serum osmolality. Probably due to CHF and diastolic response to infection with increased pulmonary pressures. Patient admits to eating a lot of salt, more some days than others. (6) Lung nodule, multiple Acute R91.8 - OTHER NONSPECIFIC ABNORMAL FINDING OF LUNG FIELD Comment/Plan : Will need follow up as outlined by radiology and probable bronchoscopy. Refer to Dr. Ellington. (7) Elbow contusion Acute S50.00XA - CONTUSION OF UNSPECIFIED ELBOW, INITIAL ENCOUNTER Qualifiers: Encounter type: initial encounter Laterality: unspecified laterality Qualified Code(s): S50.00XA - Contusion of unspecified elbow, initial encounter Comment/Plan: Treat symptomatically with antibiotic ointment and topical dressing to wounds. Additional Notes: Discussed with Dr. Moses, OK to discharge today, arrange for event monitor as outpatient & F/U with Dr. Schwartz as an outpatient in 1 month. Case Care Discussed with: Patient, Consultants, Family, Nursing Staff, Resource Management Education/Counseling Given To: Patient, Family Member Education/Counseling Given Regarding: Diagnosis, Treatment, Prognosis, Follow Up Total Time: 55 min Critical Care: No Couseling Time (>50% in counseling/coordination): Yes Code: 91925 (>30min.)
--- NOTE | 2016-07-26 12:04 | PCM.CARD ---
- Subjective Subj: no complaint; pedrito OOB and ambulated independently in [place], RN reports sat dropped to 88% during ambulation, normal at rest No chest pain, lightheadedness or near-syncope. Denies dyspnea. Ready/comfortable going home. Pt/ understand, comfortable with plan for outpt monitor and Cardiology f/u end of month. Vital Signs: Last Vital Signs Temp 96.8 F L 07/26/16 07:58 Pulse 82 07/26/16 10:19 Resp 15 07/26/16 07:58 BP 142/54 L 07/26/16 09:24 Pulse Ox 88 L 07/26/16 10:20 PE: Physical Exam GEN: Elderly man, overweight, difficulty get out of bed unassisted. BPs labile in afib, but no hypotension on standing or signficant orthostasis VS: as above HEENT: no JVD seated, carotids normal CHEST: clear COR: irreg irreg, normal s1, s2, no s3. Gr 1/6 mid systolic murmur R2ICS ABD: obese, non-tender, no obvious mass or organ enlargement EXTREM: trace bipedal edema, venous stasis changes SKIN: warm,d ry NEURO: alert, no focal motor deficit or tremor Lab/DI Results Reviewed: Laboratory Tests 07/25/16 07/25/16 07/26/16 06:35 11:27 04:10 WBC 6.7 Hgb 14.2 Hct 42.2 Plt Count 201 Sodium 138 Potassium 4.4 Chloride 102 Carbon Dioxide 27 BUN 20 Creatinine 1.00 Estimated GFR (MDRD) > 60 [id number]-T-Pizymknpxdk Pept 1910 H 1940 H tele: afib, rate generally well controlled/appropriate. Brief periods of HR incr to 140/min, lowest HR 60s (?during naps), no long pauses. Echo benign, normal EF, as noted in consult note yesterday IMPRESSION: - heart rate control in afib appears adequate or nearly so, no hemodynamically significant arrhythmia documented. - mild exertional hypoxemia - Plan PLAN: anticipate discharge today. f/u Event monitor placed in our office next week, has f/u appt with Dr. Schwartz end of month outpt event monitor : [facility] Jul 31 2:15 pm Cardiology f/u : Dr. Schwartz Aug 21 2:30 pm
[2016-07-26 12:55] VITALS: PULSE 85
== END 2016-07-26 13:42 | DRG 308 ==
LOC: ED 09:49 → OBSVTOIN 15:44 → PCU 15:44
PROVIDERS: ADMIT Family Medicine; ATTEND Family Medicine
DX: I49.5 Sick sinus syndrome (principal); J18.0 Bronchopneumonia, unspecified organism; J44.0 Chronic obstructive pulmonary disease with (acute) lower respiratory infection; I50.30 Unspecified diastolic (congestive) heart failure; I27.2 Other secondary pulmonary hypertension; S06.0X9A Concussion with loss of consciousness of unspecified duration, initial encounter; E86.0 Dehydration; I48.91 Unspecified atrial fibrillation; R35.1 Nocturia; R91.8 Other nonspecific abnormal finding of lung field; S50.00XA Contusion of unspecified elbow, initial encounter; W18.30XA Fall on same level, unspecified, initial encounter; Y93.9 Activity, unspecified; Y92.000 Kitchen of unspecified non-institutional (private) residence as the place of occurrence of the external cause; I10 Essential (primary) hypertension; M19.90 Unspecified osteoarthritis, unspecified site; Z79.82 Long term (current) use of aspirin; Z79.01 Long term (current) use of anticoagulants; Z79.899 Other long term (current) drug therapy
CPT/HCPCS: 36415; 70450; 70551; 71010; 71275; 72125; 80048; 80053; 82272; 82962; 83735; 83880; 84443; 84484; 85025; 85027; 85610; 85730; 87040; 93005; 93306; 96360; 97161; 99285; A9698; J0456; J0696; J1940; J3490; J7060; J7070